=== PATIENT | male | born 1965 | race Caucasian/White ===

== ENCOUNTER 2021-09-29 08:45 | Emergency (ER) | payer MEDICAID ==
[~2021-09-29] VITALS: Ht 165.1 cm; Wt 68.0 kg
--- NOTE | 2021-09-29 08:53 | NUR ---
Patient to ER bed 03 to gown for evaluation. Side rails up.
--- NOTE | 2021-09-29 08:56 | NUR ---
pt. here with c/o ringing in the right ear and states starting to have hearing loss in both ears
--- NOTE | 2021-09-29 09:01 | NUR ---
ER at bedside examining patient.
[2021-09-29] MEDS ORDERED: CARB15DR93 EACH EAR (09:18)
[2021-09-29 09:30] VITALS: BP_SYST 123
--- NOTE | 2021-09-29 09:30 | NUR ---
pt. homeless, denied need for resources, ate while here and left with boxed lunch, no other request
--- NOTE | 2021-09-29 09:30 | NUR ---
Patient given written and verbal discharge instructions and verbalizes understanding. ER discussed with patient the results and treatment provided. Patient in stable condition. ID arm band removed. Rx of Carbamide peroxide given. Patient educated on pain management and to follow up with PMD. Pain Scale 0. Opportunity for questions provided and answered. Medication side effect fact sheet provided.
== END 2021-09-29 09:30 | disposition home or self-care (01) ==
LOC: SED 08:45
DX: H61.23 Impacted cerumen, bilateral (principal); Z79.899 Other long term (current) drug therapy
CPT/HCPCS: 99282